=== PATIENT | female | born 1965 | race Caucasian/White ===

== ENCOUNTER 2017-12-13 19:42 | Emergency (ER) | payer OTHER, SELFPAY ==
[2017-12-13 19:43] VITALS: BP 161/96; PULSE 77; RESP 15; TEMP 37.2; O2SAT 98; BMI 23.3
--- NOTE | 2017-12-13 20:20 | ED.VISSUMM ---
- ER Visit Summary Date of Service: 12/13/17 Chief Complaint: Knee injury History of Present Illness: The patient is a 52 F who twisted her knee at work. She has no other injury. She is able to ambulate but limps. Physical Examination: Patient has no effusion. She has full range of motion and is able to flex past 90? although it is somewhat painful. Patient has no maximal fibular tenderness. There is no isolated patellar tenderness. Most of the pain is lateral, she has more pain with varus movement but not valgus. She is able to get bear weight. Otherwise normal exam Emergency Department Course and Treatment: X-rays not indicated per [place] knee rules. Patient will be discharged with crutches Maximo wrap and anti-inflammatories. Discharge stable condition Impression: Right knee strain This note was generated with [employer] dictation software. It may contain incorrect words, spelling, and punctuation that were not noted in review of the chart prior to signing ED Disposition - Plan for ED Patient: Disposition: Home or Assisted Living Chief Complaint: Lower Extremity Injury Instructions: ED Sprain Knee Prescriptions: Naproxen [Naprosyn] 500 mg PO BID PRN #20 tab Referrals: Yosef Kruger MD [Primary Care Provider] - 3-5 Days
--- NOTE | 2017-12-13 20:24 | ED.VISSUMM ---
- ER Visit Summary Date of Service: 12/13/17 Chief Complaint: [] History of Present Illness: The patient is a 52 F [] Physical Examination: [] Test Results: [] Emergency Department Course and Treatment: [] Treatment Plan: [] Disposition: [] Impression: [] This note was generated with [employer] dictation software. It may contain incorrect words, spelling, and punctuation that were not noted in review of the chart prior to signing ED Disposition - Plan for ED Patient: Disposition: Home or Assisted Living Chief Complaint: Lower Extremity Injury Instructions: ED Sprain Knee Prescriptions: Naproxen [Naprosyn] 500 mg PO BID PRN #20 tab Referrals: Yosef Kruger MD [Primary Care Provider] - 3-5 Days
== END 2017-12-13 20:42 | disposition home or self-care (01) ==
PROVIDERS: Emergency Provider Emergency Medicine; Family Provider Family Medicine; PCP Family Medicine
DX: S83.91XA Sprain of unspecified site of right knee, initial encounter (principal); X50.1XXA Overexertion from prolonged static or awkward postures, initial encounter; Y93.9 Activity, unspecified; Y92.9 Unspecified place or not applicable
CPT/HCPCS: 99283

== ENCOUNTER → 2020-10-18 09:58 | Outpatient (CLI) | payer OTHER, SELFPAY ==
--- NOTE | 2020-10-18 10:01 | BI_ITS ---
MAMMOGRAPHY - BILATERAL SCREENING REASON FOR EXAM: Female, 55 years old. Routine annual screening examination. PERTINENT HISTORY: Aunt with breast cancer. TECHNIQUE: Digital bilateral breast jacob (3D mammographic acquisition) in the CC and MLO projections. 2-D mediolateral oblique (MLO) and craniocaudad (CC) views of both breasts were obtained. CAD: Full Field Digital Mammography with Computer Added Detection was performed. COMPARISON: Comparison is made with prior outside examination dated 09/30/2018. FINDINGS: Breast Composition: The breasts are extremely dense, which lowers the sensitivity of mammography. There are no dominant masses or suspicious calcifications. Stable benign-appearing bilateral axillary lymph nodes. No other significant abnormalities are identified. There has been no significant change since the prior study. BI/SCRN MAMM (CAD)W/JACOB BILAT IMPRESSION: Stable bilateral screening mammogram. Yearly follow-up mammogram recommended. (A) ASSESSMENT CATEGORY: BIRADS Category 2: Benign. A letter regarding these results will be sent to the patient by the facility within 30 days. Approximately 10% of breast cancers are not detected by mammography. A normal mammogram should not delay biopsy of a clinically suspicious abnormality. [id number] Electronically Signed: Steffen Larson MD at 11:20 EDT , Service support ,
--- NOTE | 2020-10-18 10:11 | BD_ITS ---
STUDY: DUAL ENERGY X-RAY ABSORPTIOMETRY / DXA REASON FOR EXAM: Female, 55 years old. [id number]. The patient is postmenopausal. TECHNIQUE: Bone Mineral Density (BMD) measurements of lumbar spine and bilateral hips were obtained. COMPARISON: None. FINDINGS: Lumbar Spine (L1-L4): g/cm2 (0.757) / T-score (-2.6) / Z-score (-1.4) Findings are suggestive of osteoporosis with a high fracture risk. Left Femur Total: g/cm2 (0.643) / T-score (-2.4) / Z-score (-1.6) Left Femoral Neck: g/cm2 (0.5-5) / T-score (-2.9) / Z-score (-1.8) Right Femur Total: g/cm2 (0.680) / T-score (-2.2) / Z-score (-1.4) Right Femoral Neck: g/cm2 (0.554) / T-score (-2.7) / Z-score (-1.5) BD/Dexa Bone Density Study IMPRESSION: The patient is considered osteoporotic as outlined below according to World Joni Organization (WHO) criteria with a high fracture risk. Reference Information: The T-score is the number of standard deviations above or below the standard which is normal for young adults at their peak bone mineral density. The World Health Organization (WHO) interprets the T-scores as follows: Above -1 Normal bone density Between -1 and -2.5 Osteopenia Equal to / or below -2.5 Osteoporosis As a practical clinical guideline, osteopenia may be graded as follows: Mild -1 through -1.5 Moderate -1.6 through -2.0 Severe -2.1 through -2.4 The Z-score is the number of standard deviations above or below age-matched controls. A Z-score of less than -1.5 would be considered abnormal. References: 1. NIH Osteoporosis and Related Bone Diseases www osteo.org 2. International Society for Clinical Densitometry www iscd.org 3. National Osteoporosis Foundation www nof.org Electronically Signed: Steffen Larson MD at 10:15 EDT , Service support ,
== END ==
PROVIDERS: PCP Family Medicine; Referring Provider Internal Medicine; Visit Provider Internal Medicine
DX: Z12.31 Encounter for screening mammogram for malignant neoplasm of breast (principal); Z78.0 Asymptomatic menopausal state
CPT/HCPCS: 77063; 77067; 77080

== ENCOUNTER 2023-10-28 19:04 | Day surgery (SDC) | payer OTHER, SELFPAY ==
[2023-10-28] VITALS (8 sets, daily range): BP systolic 137–158; BP diastolic 92–104; PULSE 81–98; RESP 16–18; TEMP 36.8–37.3; O2SAT 97–100; BMI 21.4
--- NOTE | 2023-10-28 20:03 | ED.VIS.GI ---
HPI HPI - GI History of Present Illness Chief Complaint: Foreign Body Narrative Narrative: 58-year-old female presenting with impacted food bolus in her esophagus. She states that this morning she had to belch and vomited a little and she noted that she has not been able to swallow any food or water all day. She is able to tolerate her secretions. She states she has had an impacted food bolus in the past. She states she has a esophageal narrowing which causes the problem. She states she usually also tumor food pretty well. PFSH PFSH Medical History Abnormal cardiac enzyme level Knee pain Home Medications ?Medication ?Instructions ?Recorded ?Last Taken ?Type naproxen 500 mg tablet 500 mg PO BID PRN #20 tabs 12/13/17 Unknown Rx multivitamin 1 cap PO DAILY 12/15/17 Unknown History omega-3 fatty acids 1,000 mg 1,000 mg PO DAILY 12/15/17 Unknown History capsule tumeric PO 12/15/17 Unknown History Allergy/AdvReac Type Severity Reaction Status Date / Time No Known Allergies Allergy Verified 10/28/23 19:08 Family History Other Skin cancer Surgical History Hx of left knee surgery Social History Smoking Status: Never smoker alcohol intake: current Alcohol type: beer and wine details: once weekly ROS ROS ED Constitutional Constitutional ED: Denies chills, fever(s) or sweats Eyes Eyes: Denies blurry vision or change in vision ENT ENT ED: Denies ear pain or sore throat Cardiovascular Cardiovascular: Denies chest pain, palpitations or racing heartbeat Respiratory/Chest Respiratory/Chest: Denies cough, dyspnea or sputum Gastrointestinal Gastrointestinal: Reports other Details: Esophageal foreign body ; Denies abdominal pain, constipation, diarrhea, nausea or vomiting Genitourinary Genitourinary ED: Denies dysuria, hematuria or urinary frequency Musculoskeletal Musculoskeletal: Denies arthralgias, myalgias or neck pain Integumentary Denies abscess, Abrasions or rash Neurologic Neurologic: Denies headache(s), paresthesias or weakness Psychiatric Psychiatric: Denies anxiety, depression, suicidal ideation or suicidal thoughts Endocrine Endocrinology: Denies polydipsia or polyuria EXAM Physical Exam Const Vital Signs: 10/28/23 19:05 10/28/23 19:43 10/28/23 21:05 Temperature 98.5 F Temperature Source Temporal Pulse Rate 93 81 Respiratory Rate 16 18 Respiratory Effort Normal Non-Labored Respiratory Pattern Normal Blood Pressure 138/104 H 158/96 H Blood Pressure Mean 115 116 Pulse Ox 98 99 Oxygen Delivery Method Room Air Room Air Positive well nourished General Appearance ED: NAD and pallor HEENT Reports moist mucous membranes normocephalic Eyes PERRL and EOMs intact bilaterally Resp normal respiratory effort Auscultation: Negative for rales, rhonchi or wheezes Cardio regular rate and regular rhythm GI non-tender and non-distended Neuro CN's II-XII intact bilaterally and moves all extremities Sensorium / Orientation: alert Psych mental status grossly normal Mood & Affect: Negative for depressed or anxious Skin General Skin Exam: pallor MDM MDM MDM Narrative Medical decision making narrative: Patient presenting with concern for impacted food bolus. She is not able to tolerate fluids or food today. She states has had this in the past secondary to esophageal narrowing. IV line was established. Patient was given glucagon. Will see if we can dislodge this. If not we will call general surgery. We do not have GI on-call. Patient given glucagon p.o. challenge failed. She is not able to swallow water. Will discuss with general surgery. Discussed with Dr. D ePaz and he will take her down to the endoscopy suite. He states he was discharged from there. Impression: 1. Esophageal food bolus impaction Lab Data Attestation: I reviewed the patient's lab results. Discharge Plan Triage Chief Complaint: Foreign Body ED Provider: Pancho Riggs Dx/Rx/DC Orders Primary Care Provider: Tracey Miles
[2023-10-28] MEDS: Glucagon 1 MG/ML Syringe IV (20:10)
--- NOTE | 2023-10-28 22:01 | PCM.HP.STD ---
HPI - General HPI Narrative SHEILA DALEY, is a 58 F who presents with obstruction of her esophagus. The patient reports she was eating breakfast and then burped up some food which then got caught in her esophagus and has not cleared. She has not been able to control her sputum production and reports that she has to spit all of her saliva. She says she feels like something is stuck in her esophagus in the mid chest. She has had issues with dysphagia in the past. She does not take a PPI. [facility] Medical History (Updated 10/28/23 @ 22:[address] Sim De Paz MD) Abnormal cardiac enzyme level Knee pain Home Medications ?Medication ?Instructions ?Recorded ?Last Taken ?Type naproxen 500 mg tablet 500 mg PO BID PRN #20 tabs 12/13/17 Unknown Rx multivitamin 1 cap PO DAILY 12/15/17 Unknown History omega-3 fatty acids 1,000 mg 1,000 mg PO DAILY 12/15/17 Unknown History capsule tumeric PO 12/15/17 Unknown History Allergy/AdvReac Type Severity Reaction Status Date / Time No Known Allergies Allergy Verified 10/28/23 19:08 Family History Other Skin cancer Surgical History Hx of left knee surgery Social History Smoking Status: Never smoker alcohol intake: current Alcohol type: beer and wine details: once weekly ROS Constitutional Constitutional: Denies anorexia, chills, fatigue or fever(s) Eyes Eyes: Denies blurry vision ENT HEENT: Denies abnormal hearing Respiratory/Chest Respiratory/Chest: Denies cough or dyspnea Gastrointestinal Gastrointestinal: Reports abdominal pain, dysphagia and vomiting; Denies constipation or diarrhea Genitourinary Genitourinary: Denies difficulty urinating Musculoskeletal Musculoskeletal: Denies abnormal gait Vital Signs Vital Signs Vital Signs: 10/28/23 19:05 10/28/23 19:43 10/28/23 21:05 Temperature 98.5 F Temperature Source Temporal Pulse Rate 93 81 Respiratory Rate 16 18 Respiratory Effort Normal Non-Labored Respiratory Pattern Normal Blood Pressure 138/104 H 158/96 H Blood Pressure Mean 115 116 Pulse Ox 98 99 Oxygen Delivery Method Room Air Room Air Weight Weight: 116 lb 14.4 oz Body Mass Index (BMI) 21.4 Physical Exam Const oriented x3 and no apparent distress Resp normal respiratory effort Cardio regular rate and regular rhythm GI soft to palpation and non-tender Assessment & Plan Assessment/Plan (1) Impacted esophageal foreign body: PLAN: The patient has an impacted food bolus in the esophagus. I discussed performing EGD with her. I discussed the risks including but not limited to bleeding, infection, perforation of the esophagus, aspiration. Patient understands all the risks and is willing to proceed. I will send the patient home on a PPI and she will follow-up with me after the procedure to schedule elective EGD with balloon dilation. Sim De Paz MD Pager: [facility] [address] [place] [address], [address] [place] [address] Office:
--- NOTE | 2023-10-28 22:26 | OP.CCLET_ITS ---
10/28/2023 Tracey Miles [address] [place] [place] [address] Re : Upper GI endoscopy procedure for Jenny Clearytaker Dear Dr. Miles This procedure was performed on Saturday, October 28, 2023. My impressions and recommendations are as follows: Impressions : - Food in the lower third of the esophagus. Removal was successful. Recommendations : - Discharge patient to home. - Soft diet for 2 days. - Continue present medications. - Use Prilosec (omeprazole) 20 mg PO daily for 6 weeks. - Return to my office in 1 week. My findings are described in the full procedure note, which is enclosed. If I can be of further assistance, please feel free to contact me at Doctor phone number(s): , Work: . Sincerely, Sim De Paz MD 10/28/2023 10:26:03 PM This report has been signed electronically.
--- NOTE | 2023-10-28 22:26 | OP.EGD_ITS ---
Patient Name: Jenny Valencia Procedure Date: 10/28/2023 9:54 PM Date of : 1965 Age: 58 Procedure: Upper GI endoscopy Indications: Foreign body in the esophagus Providers: Sim De Paz MD Medicines: Propofol per Anesthesia Patient Profile: This is a 58 year old female. Refer to note in patient chart for documentation of history and physical. Complications: No immediate complications. Estimated blood loss: Minimal. Procedure: Pre-Anesthesia Assessment: - Prior to the procedure, a History and Physical was performed, and patient medications and allergies were reviewed. The patient's tolerance of previous anesthesia was also reviewed. The risks and benefits of the procedure and the sedation options and risks were discussed with the patient. All questions were answered, and informed consent was obtained. Prior Anticoagulants: The patient has taken no anticoagulant or antiplatelet agents. After reviewing the risks and benefits, the patient was deemed in satisfactory condition to undergo the procedure. After obtaining informed consent, the endoscope was passed under direct vision. Throughout the procedure, the patient's blood pressure, pulse, and oxygen saturations were monitored continuously. The Endoscope was introduced through the mouth, and advanced to the third part of duodenum. The upper GI endoscopy was accomplished without difficulty. The patient tolerated the procedure well. Scope In: 10:20:11 PM Scope Out: 10:21:45 PM Total Procedure Duration Time 0 hours 1 minute 34 seconds Findings: Food was found in the lower third of the esophagus. Removal was accomplished by pushing the bolus into the stomach. Impression: - Food in the lower third of the esophagus. Removal was successful. Recommendation: - Discharge patient to home. - Soft diet for 2 days. - Continue present medications. - Use Prilosec (omeprazole) 20 mg PO daily for 6 weeks. - Return to my office in 1 week. Procedure Code(s): --- Professional --- 19044, Esophagogastroduodenoscopy, flexible, transoral; with removal of foreign body(s) Diagnosis Code(s): --- Professional --- T18.128A, Food in esophagus causing other injury, initial encounter T18.108A, Unspecified foreign body in esophagus causing other injury, initial encounter CPT copyright 2021 [employer]. All rights reserved. The codes documented in this report are preliminary and upon health information coder review may be revised to meet current compliance requirements. Sim De Paz MD 10/28/2023 10:26:03 PM This report has been signed electronically. Number of Addenda: 0 Note Initiated On: 10/28/2023 9:54 PM
--- NOTE | 2023-10-28 22:45 | PRE.ANES_ITS ---
ASA Classification* ASA Classification ASA Classification: 2 Assessment & Plan Anesthesia* Anesthesia Assessment Anesthesia Assessment: Discussed sedation and/or anesthesia options, risks, benefits, and alternatives with patient/parents/legal guardian/POA. Questions invited. The patient/parents/legal guardian/POA seems to understand and agrees to proceed with anesthesia plan. Reviewed the physical assessment, medical history, allergy history and patient home medications list prior to surgery/procedure/anesthetic and documented any changes. Performed airway and anesthesia risk assessments. 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 When Was Last Pacemaker Check QUESTION #4 FULL TEXT: You/Your Family Experience fever (hyperthermia) with Anesthesia Last Oral Intake Last Oral intake: Last Oral Intake NPO since 00:00 10/28/23 21:28 Meds taken in AM with sips of No 10/28/23 21:28 water? 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 Female HX of Motion Sickness HX of N/V After Surgery Non-Smoker Duration of Surgery greater than 60 minutes Number of Risk Factors PONV Score Height & Weight Height & Weight: Anesthesia: Height & Weight Height 5 ft 2 in 10/28/23 21:28 Weight: 53.025 kg 10/28/23 21:28 Body Mass Index (BMI) 21.4 10/28/23 21:28 Respiratory Assessment Respiratory Assessment - wood window and door craftsman: Respiratory Tract Infection Hx - wood window and door craftsman Hx Respiratory Tract Infection No 10/28/23 21:28 STOP Sleep Apnea STOP Sleep Apnea - wood window and door craftsman: STOP Sleep Apnea - wood window and door craftsman Hx Hypertension No 10/28/23 21:28 Hx Sleep Apnea No 10/28/23 21:28 CPAP BIPAP Do you snore loudly (louder No 10/28/23 21:28 than talking or can be heard Do you often feel tired/ Yes 10/28/23 21:28 fatigued/ sleepy during daytime? Has anyone observed you stop No 10/28/23 21:28 breathing during sleep? STOP Results Negative 10/28/23 22:28 QUESTION #5 FULL TEXT : Do you snore loudly (louder than talking or can be heard through closed doors)? 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 Specify any problems Hx of Preganancy in last 3 Months Nurse Filling Out Transfusion & Questions: Date: Time: Patient unable to answer at this time (ie. confused, unrespo /Reproduction History /Reproductive History - wood window and door craftsman: /Reproductive Hx- wood window and door craftsman Hx Now No 10/28/23 21:28 Gestational Age (in weeks): EDC: Hx Hx Para Hx Section SAB No 10/28/23 21:28 [facility] Medical History (Updated 10/28/23 @ 22:[address] Sim De Paz MD) Abnormal cardiac enzyme level Knee pain Home Medications ?Medication ?Instructions ?Recorded ?Last Taken ?Type naproxen 500 mg tablet 500 mg PO BID PRN #20 tabs 12/13/17 Unknown Rx multivitamin 1 cap PO DAILY 12/15/17 Unknown History omega-3 fatty acids 1,000 mg 1,000 mg PO DAILY 12/15/17 Unknown History capsule tumeric PO 12/15/17 Unknown History omeprazole 20 mg capsule,delayed 20 mg PO DAILY #60 caps 10/28/23 Unknown Rx release Allergy/AdvReac Type Severity Reaction Status Date / Time No Known Allergies Allergy Verified 10/28/23 19:08 Family History Other Skin cancer Surgical History Hx of left knee surgery Social History Smoking Status: Never smoker alcohol intake: current Alcohol type: beer and wine details: once weekly Review of Systems (Anesthesia) ROS Narrative System reviewed and no additional complaints, except as documented.
--- NOTE | 2023-10-28 22:45 | PCM.POST.ANE ---
Anesthesia: Postop Eval I Current Vital Signs Temperature: 98.4 F Pulse Rate: 94 Blood Pressure: 137/95 Respiratory Rate: 17 Pulse Ox: 98 Assessment Airway patent: Yes Spontaneous unlabored respirations: Yes nausea: No Vomiting: No Anesthesia Complication: No Fluid Hydration Crystalloid volume administer (ml): 150 Total IV fluid infused: 150 Progress Note Anesthesia document: Postop Eval 1 completed: Yes
--- NOTE | 2023-10-28 22:48 | POSTOPAN2_ITS ---
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 Spontaneous unlabored Yes 10/28/23 22:45 STANDARD MACHINE [email or web address].[email or web address] respirations Mental status nausea No 10/28/23 22:45 STANDARD MACHINE [email or web address].[email or web address] Vomiting No 10/28/23 22:45 STANDARD MACHINE [email or web address].[email or web address] Anesthesia Postop Eval I: Fluid Summary Crystalloid volume administer 150 10/28/23 22:45 STANDARD MACHINE [email or web address].[email or web address] (ml) Colloids volume administered ( ml) Blood Product volume administered (ml) Total IV fluid infused 150 10/28/23 22:45 STANDARD MACHINE [email or web address].[email or web address] Anesthesia Postop Eval I: Summary Notes Anesthesia Complication No 10/28/23 22:45 STANDARD MACHINE [email or web address].[email or web address] Anesthesia Complication Comment: Post-operative progress note Anesthesia: Postop Eval II Evaluation Mental status: Awake Pain Level: 0 nausea: No Vomiting: No
--- NOTE | 2023-10-28 22:48 | PCM.POSTANE2 ---
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 Spontaneous unlabored Yes 10/28/23 22:45 WEB MOBILE DESIGNER.[email or web address] respirations Mental status nausea No 10/28/23 22:45 WEB MOBILE DESIGNER.[email or web address] Vomiting No 10/28/23 22:45 WEB MOBILE DESIGNER.[email or web address] Anesthesia Postop Eval I: Fluid Summary Crystalloid volume administer 150 10/28/23 22:45 WEB MOBILE [email or web address].[email or web address] (ml) Colloids volume administered ( ml) Blood Product volume administered (ml) Total IV fluid infused 150 10/28/23 22:45 WEB MOBILE DESIGNER.[email or web address] Anesthesia Postop Eval I: Summary Notes Anesthesia Complication No 10/28/23 22:45 WEB MOBILE DESIGNER.[email or web address] Anesthesia Complication Comment: Post-operative progress note Anesthesia: Postop Eval II Evaluation Mental status: Awake Pain Level: 0 nausea: No Vomiting: No
== END 2023-10-28 22:58 | disposition home or self-care (01) ==
LOC: ED 20:05 → EN 21:35
PROVIDERS: Emergency Provider Student in an Organized Health Care Education/Training Program; PCP Internal Medicine; Visit Provider Surgery
PROC: 0DJ08ZZ Inspection of Upper Intestinal Tract, Via Natural or Artificial Opening Endoscopic (ICD-10-PCS; CPT 43235; principal; 2023-10-28 22:15)
DX: T18.128A Food in esophagus causing other injury, initial encounter (principal); K22.2 Esophageal obstruction; W44.F3XA Food entering into or through a natural orifice, initial encounter
CPT/HCPCS: 43247; 99281; 99283; J7030; A4216; J1610